=== PATIENT | male | born 1975 | race Caucasian/White ===

== ENCOUNTER 2018-10-04 02:18 | Outpatient (CLI) | payer BC, SELFPAY ==
[2018-10-04 11:41] LABS: Anion Gap 10.2 mmol/L (3-11); BUN 14 mg/dL (7-18); CO2 26.8 mmol/L (21.0-32.0); CREATININE 0.79 mg/dL (0.70-1.30); Calcium 8.9 mg/dL (8.5-10.1); Calculated LDL 185 mg/dL; Chloride 102 mmol/L (98-107); Cholesterol 289 mg/dL (50-200); Glucose 89 mg/dL (70-100); HDL Cholesterol 84 mg/dL (40-60); Potassium 4.6 mmol/L (3.5-5.1); Sodium 139 mmol/L (136-145); Triglyceride 101 mg/dL (30-150)
== END 2018-10-04 02:38 ==
PROVIDERS: PCP Family Medicine; Visit Provider Family Medicine
DX: E78.5 Hyperlipidemia, unspecified (principal); I10 Essential (primary) hypertension
CPT/HCPCS: 36415; 80048; 80061; 83721

== ENCOUNTER 2022-02-02 02:51 | Outpatient (CLI) | payer BC, SELFPAY ==
[2022-02-02 07:35] LABS: Hemoglobin A1C 5.8 % (<5.7)
[2022-02-02 07:49] LABS: Calculated LDL 159 mg/dL (<100); Cholesterol 270 mg/dL (<200); HDL Cholesterol 93 mg/dL (40-60); Triglyceride 93 mg/dL (<150)
[2022-02-02 19:47] LABS: PSA, Screening 0.7 ng/mL (<=2.5)
== END 2022-02-02 02:52 | disposition home or self-care (01) ==
LOC: LBO 02:51
PROVIDERS: PCP Nurse Practitioner Family; Visit Provider Nurse Practitioner Family
DX: Z13.220 Encounter for screening for lipoid disorders (principal); Z13.1 Encounter for screening for diabetes mellitus; Z12.5 Encounter for screening for malignant neoplasm of prostate
CPT/HCPCS: 36415; 80061; 84153; 83036

== ENCOUNTER 2022-08-23 15:26 | Outpatient (CLI) | payer BC, SELFPAY ==
--- NOTE | 2022-08-23 15:15 | RT.EKG_ITS ---
APPROVED REPORT Exam: Resting ECG Reason for Exam: chest discomfort Patient Location: O HR:84 bpm ECG Measurements Heart Rate 84 AXIS NH 179 P 51 QRSd 96 QRS 36 QT 383 T 36 QTc 453 Conclusion Sinus rhythm...normal P axis, V-rate 50- 99 Left atrial enlargement...P, P'>60mS, <-0.15mV V1 Otherwise normal ECG
== END 2022-08-23 15:27 | disposition home or self-care (01) ==
LOC: DI.CM 15:26
PROVIDERS: PCP Nurse Practitioner Family; Visit Provider Physician Assistant
DX: R07.89 Other chest pain (principal)
CPT/HCPCS: 93010

== ENCOUNTER 2022-08-23 16:18 | Emergency (ER) | payer BC, SELFPAY ==
[2022-08-23] VITALS (10 sets, daily range): BP systolic 131–144; BP diastolic 72–86; PULSE 65–89; RESP 1–20; TEMP 36.8; O2SAT 94–100
--- NOTE | 2022-08-23 16:15 | RT.EKG_ITS ---
APPROVED REPORT Exam: Resting ECG Reason for Exam: chest pain, dizzy Patient Location: E HR:83 bpm ECG Measurements Heart Rate 83 AXIS WA 185 P 44 QRSd 95 QRS 27 QT 385 T 23 QTc 452 Conclusion Sinus rhythm...normal P axis, V-rate 60- 99 Probable left atrial enlargement...P >50mS, <-0.10mV V1
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
--- NOTE | 2022-08-23 16:45 | DI.CT_ITS ---
Exam(s) CT HEAD WO EXAM: CT HEAD WO CLINICAL HISTORY: COLE, Syncope. TECHNIQUE: Imaging Protocol: Axial computed tomography images with coronal and sagittal reformatted images were created and reviewed COMPARISON: No exams were available for comparison FINDINGS: Ventricles and Extra axial spaces: Normal in size and morphology for the patient's age. Hemorrhage: None. Cerebral parenchyma: Normal. Midline shift: None. Brainstem/Cerebellum: Normal. Calvarium: Normal. Visualized Paranasal sinuses/Mastoids: Clear. Soft Tissues: Unremarkable. IMPRESSION: No acute intracranial process. RADIATION DOSE DELIVERED: 881.25mGy.cm Total DLP DATA REPOSITORY: All CT scans at this facility are submitted to the National Radiology Data Registry (NRDR) Dose Index Registry (DIR) with the [employer] (ACR). RADIATION OPTIMIZATION: All CT scans at this facility use at least one of these dose optimization te chniques: automated exposure control; mA and/or kV adjustment per patient size (includes targeted exa ms where dose is matched to clinical indication); or iterative reconstruction.
--- NOTE | 2022-08-23 16:45 | DI.CT_ITS ---
Exam(s) CT CHEST PE CTA EXAM: CT CHEST PE CTA CLINICAL HISTORY: Syncope, Chest pressure, R/O PE. TECHNIQUE: Imaging Protocol: Axial CT angiography was performed with multi-slice acquisition and mu lti-planar reconstructions as well as axial, coronal and sagittal MIP reconstructions. CONTRAST MATERIAL: Intravenous: Omnipaque 350 Contrast volume:100 ml COMPARISON: No exams were available for comparison FINDINGS: Pulmonary Arteries: No evidence of filling defect to suggest pulmonary emboli. Tracheobronchial tree: Patent where visualized. Mediastinum and Gladys: No dominant adenopathy or fluid collection. Pulmonary parenchyma: Dependent changes. No consolidation or dominant measurable mass. Pleura: No effusion or pneumothorax. Heart: The heart is not dilated. No coronary artery calcifications are seen. Aorta: Thoracic aorta non-dilated. No aneurysm. No dissection. Upper abdomen: Unremarkable. Bones: No acute fracture. Minimal anterior wedging of T12 appears chronic. Schmorl's node at this l evel. Tubes, Catheters, and Lines: None IMPRESSION: No evidence of pulmonary embolism or other acute abnormality. RADIATION DOSE DELIVERED: 491.39mGy.cm Total DLP DATA REPOSITORY: All CT scans at this facility are submitted to the National Radiology Data Registry (NRDR) Dose Index Registry (DIR) with the [employer] (ACR). RADIATION OPTIMIZATION: All CT scans at this facility use at least one of these dose optimization te chniques: automated exposure control; mA and/or kV adjustment per patient size (includes targeted exa ms where dose is matched to clinical indication); or iterative reconstruction.
[2022-08-23 16:47] LABS: Abs Immature Grans 0.01 10^3/uL (0.0-0.06); Absolute Basophil Count 0.02 10^3/uL (0.0-0.2); Absolute Eosinophil Count 0.05 10^3/uL (0.0-0.7); Absolute Lymphocyte Count 2.11 10^3/uL (1.2-3.4); Basophils % 0.4; Eosinophils % 0.9; Immature Grans % 0.2; Lymphocytes % 39.1; MCH 30.1 pg (27.0-33.0); MCHC 34.1 % (32.0-36.0); MCV 88 fL (80-95); MPV 9.9 fL (8.0-11.0); Monocytes % 11.1; Neutrophils % 48.3; Platelet Count 260 10^3/uL (130-400); RBC 4.99 10^6/uL (4.36-5.78); RDW 12.6 % (11.8-14.1); RDW-SD 40.6 fL; WBC 5.39 10^3/uL (4.4-10.8)
[2022-08-23] MEDS: Aspirin 81 MG CHEW 324 MG CH (16:55)
[2022-08-23 17:08] LABS: ALT 29 U/L (16-63); AST 19 U/L (15-37); Albumin 4.4 g/dL (3.4-5.0); Alkaline Phosphatase 65 U/L (46-116); BUN 15 mg/dL (7-18); Bilirubin, Total 0.3 mg/dL (0.2-1.0); CREATININE 0.8 mg/dL (0.70-1.30); Calcium 8.8 mg/dL (8.5-10.1); Chloride 103 mmol/L (98-107); Estimated GFR 111.22 (mL/min/1.73m2); Glucose 116 mg/dL (74-106); Potassium 3.3 mmol/L (3.5-5.1); Sodium 141 mmol/L (136-145); Total Protein 7.7 g/dL (6.4-8.2); Troponin I < 50 ng/L (<or=60)
[2022-08-23 17:19] LABS: D-Dimer 155 ng/mlFEU (<500)
[2022-08-23] MEDS: Normal Saline Flush 10 ML SYR IVP (17:27)
[2022-08-23] MEDS: Omnipaque 350 MG/ML 100 ML BTL IJ (17:28)
[2022-08-23] MEDS: Normal Saline - Diluent 50 ML VIAL IJ (17:28)
[2022-08-23] MEDS: Potassium Chloride 20 MEQ TABCR 40 MEQ PO (17:40)
--- NOTE | 2022-08-23 18:08 | DI.VRAD_ITS ---
PROCEDURE INFORMATION: Exam: CTA Chest With Contrast Exam date and time: 08/23/2022 5:37 PM Age: 47 years old Clinical indication: Other: Syncope, chest pressure, R/O pe TECHNIQUE: Imaging protocol: Computed tomographic angiography of the chest with contrast. Exam focused on the arteries. 3D rendering (Not supervised by radiologist): MIP and/or 3D reconstructed images were created by the technologist. Contrast material: OMNIPAQUE 350; Contrast volume: 100 ml; Contrast route: INTRAVENOUS (IV); COMPARISON: No relevant prior studies available. FINDINGS: Pulmonary arteries: Normal. No pulmonary emboli. Aorta: Unremarkable. No aortic aneurysm. No aortic dissection. Lungs: Unremarkable. No consolidation. No masses. Pleural spaces: Unremarkable. No pneumothorax. No pleural effusion. Heart: Unremarkable. No cardiomegaly. No pericardial effusion. Lymph nodes: Unremarkable. No enlarged lymph nodes. Bones/joints: Unremarkable. No acute fracture. Soft tissues: Unremarkable. IMPRESSION: No acute findings. Dictated and Authenticated by: Sin Pearson MD. Ordering:TINO Munroe MD
--- NOTE | 2022-08-23 18:20 | DI.VRAD_ITS ---
PROCEDURE INFORMATION: Exam: CT Head Without Contrast Exam date and time: 08/23/2022 5:34 PM Age: 47 years old Clinical indication: Syncope and collapse and other: COLE, syncope TECHNIQUE: Imaging protocol: Computed tomography of the head without contrast. COMPARISON: No relevant prior studies available. FINDINGS: Brain: There is no acute intracranial hemorrhage, mass effect or midline shift. There is no large acute territorial cerebral infarct. Cerebral ventricles: No ventriculomegaly. Paranasal sinuses: Visualized sinuses are unremarkable. No fluid levels. Mastoid air cells: Visualized mastoid air cells are well aerated. Bones/joints: Unremarkable. No acute fracture. Soft tissues: Unremarkable. IMPRESSION: No acute intracranial hemorrhage, mass effect or midline shift. Dictated and Authenticated by: Whitney Zavala MD. Ordering:TINO Munroe MD
== END 2022-08-23 18:53 | disposition home or self-care (01) ==
PROVIDERS: Emergency Provider Registered Nurse Emergency; PCP Nurse Practitioner Family
DX: R55 Syncope and collapse (principal); E86.0 Dehydration; R07.9 Chest pain, unspecified
CPT/HCPCS: 71275; 80053; 93005; 99285; 70450; 83735; 84484; 85025; 85379; 93010; 99284; J3490

== ENCOUNTER 2023-07-02 09:13 | Day surgery (SDC) | payer BC, SELFPAY ==
--- NOTE | 2023-07-01 19:00 | W.PM.DSUDISC ---
Date of service: 07/02/23 Time of Service: 10:37 Discharge Plan Disposition Patient Disposition: Home Condition: Good Discharge Details Reason For Visit: screening colonoscopy Attending Provider: Mark Gardner Primary Care Provider: Rasheed Quispe Home Meds and New Rx's Prescriptions: Continued sertraline 50 mg tablet 50 mg PO DAILY Qty: 90 4RF Rx Instructions: please dispense up to 9 months, patient is leaving for [place] (or ? mailing it to him) Discontinued bisacodyl [Dulcolax (bisacodyl)] 5 mg tablet,delayed release (DR/EC) 5 mg PO ONCE Qty: 4 0RF polyethylene glycol 3350 17 gram/dose powder 17 g PO DAILY Qty: 238 0RF Discharge Instructions Instructions: Colorectal Polyps (GEN) Additional Instructions: Neno, we were able to complete your colonoscopy today without any difficulty. The quality of her prep was excellent. I did find 2 polyps. 1 was small, the other was medium in size. I removed both of these without any issues. They will both be sent off for testing, and once I know the nature of these polyps, my office will be in touch with recommendations for the timing of your next colonoscopy. If you need anything at all or have any questions in the meantime, please do not hesitate to call or ask at any point 1. If tolerated, consume a soft, low fiber diet for 1-2 days. 2[address] Do not drive, drink alcohol, operate machinery, make critical decisions, or do activities that require coordination or balance for 24 hours. 3. Because air was put into your colon during the procedure, expelling air from your rectum (passing gas or farting) is normal. 4. You may not have a bowel movement for 1-3 days because of the colonoscopy prep. This is normal. 5. Go directly to the emergency room if you notice any of the following: Develop chills (warm to touch), or if you have a thermometer and your temperature is above 101 Difficulty breathing or difficultly swallowing Persistent vomiting Severe abdominal pain, other than gas cramps Severe chest pain Black, tarry stools Any bleeding ? exceeding one tablespoon 6. Call your physician if the site where your intravenous was started becomes red, swollen, painful, and warm to touch. 7. Your physician has reviewed your pre-procedure medications. Please continue to take those medications as previously ordered. You will be given specific information/education regarding any changes to your medications before leaving. Activity:: Activity as Tolerated Diet:: As Tolerated Discharge Orders Discharge Orders: Discharge Order (Routine); Ordered 07/01/23 Ordered By: Mark Gardner DS: Diagnosis Discharge Diagnosis (1) Encounter for screening colonoscopy: Status: Acute Asessment and Plan: Follow-up on polypectomy results
--- NOTE | 2023-07-01 19:01 | W.COLOREPORT ---
Date of service: 07/02/23 Time of Service: 10:39 Colonoscopy Report Date of procedure: 07/02/23 Pre-op diagnosis general: screening colonoscopy Post-op diagnosis procedure note: other (Colon polyps) Procedure: colonoscopy with polypectomy Surgeon: Mark Gardner Anesthesia Type: General:No Airway Estimated blood loss (mL): 5 Pathology: other (0.5 cm pedunculated polyp at 60 cm, 0.25 cm flat polyp in the rectum) Complications: None Disposition: same day Indications: Neno is a 48 yearold man who needs a screening colonoscopy Prep: Miralax/Dulcolax Procedure Start Time: 09:58 Procedure End Time: 10:27 Retraction Time: 10 Findings: 0.5 cm pedunculated polyp at 60 cm, 0.25 cm flat polyp in the rectum Procedure Description: After the induction of monitored anesthetic care, and with the patient in left lateral decubitus position, I began by performing an external anorectal exam.? Perineum and skin were normal, as was the anal verge.? There was no evidence of external hemorrhoids.? Next, I performed a digital rectal exam.? I did not appreciate any abnormal findings.? Next, I advanced a colonoscope into the rectal vault.? I performed retroflexion.? This was normal.? Using insufflation, I then advanced the colonoscope beyond the rectal folds and into the sigmoid colon before advancing towards the cecum.? The scope was noted to be in the cecum by identification of the ileocecal valve and appendiceal orifice.? I then began withdrawing the colonoscope using repeated irrigation as necessary for full evaluation of the colonic mucosa. Around 60 cm from the anal verge I identified a 0.5 cm polyp. ?It appeared pedunculated in character. ?I was able to remove this with a cold snare polypectomy. ?I examined the site, and there was minimal bleeding. ?Once this was completed, I continued to withdraw the scope and examine the remainder of the colonic mucosa.?Once the scope was withdrawn to the level of the rectum, great care was taken to examine portions of the rectal folds. In the upper portion of the rectal vault was another polyp. This was about 0.25 cm and flat. This was removed with cold forcep polypectomy without any problems.? Finally, the scope was withdrawn and the patient was brought to the same-day surgery recovery unit as the anesthetic wore off. ?The findings and instructions were shared with the patient prior to discharge. [place] Bowel Prep Orlando Bowel Prep Right Colon: 3 Left Colon: 3 Transverse Colon: 3 Total Score: 9
[2023-07-02 09:24] VITALS: BP 135/80; PULSE 61; RESP 16; TEMP 36.5; O2SAT 98
[2023-07-02] MEDS: Lactated Ringers 1,000 ML 80 ML IV (09:29)
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
[2023-07-02 09:44] VITALS: BMI 29.7
--- NOTE | 2023-07-02 10:23 | BOWEL_PTH ---
PATIENT: Neno Grant LOC: [facility] U#:[id number] AGE/SX: 48/M ROOM: RE07/02/[address]: Mark Gardner MD : 1975 BED: DIS: 07/02/2023 SPEC #: [id number] RECD: 07/02/23 12:57 STATUS: NOLVIA REQ #: [id number] MITRA: 07/02/23 10:[address]: Mark Gardner DEPT: Surgical Specimen RECD BY: Sayda Tsang ENTERED: 07/02/23 12:58 SP TYPE: Bowel OTHR DR: Rasheed Donato DNP Tissues: 1 - BIOPSY BOWEL 2 - BIOPSY BOWEL Procedures: GROSS AND MICRO LEVEL 4 Comments: [id number]
[2023-07-02 10:35] VITALS: BP 106/72; PULSE 69; RESP 16; O2SAT 98
[2023-07-02 10:54] VITALS: BP 108/72; PULSE 56; RESP 16; TEMP 36.6; O2SAT 98
--- NOTE | 2023-07-02 10:55 | W.ANESPOSTOP ---
Postoperative Evaluation Date, Time and Location Date Performed: 07/02/23 Time Performed: 10:48 Patient Location: Day Surgery Unit Vital Signs Most Recent Imported Vital Signs: Most Recent Vital Signs Temp Pulse Resp BP Pulse Ox 36.6 C 56 L 16 108/72 98 07/02/23 10:54 07/02/23 10:54 07/02/23 10:54 07/02/23 10:54 07/02/23 10:54 Pain Score Most Recent Pain Score: Most Recent Pain Score Pain Level 0 07/02/23 10:54 Assessment Mental Status: Awake (Alert & Oriented to Patient Baseline) Airway and Respiratory Function: Patent airway with normal (patient baseline) respiratory exam Cardiovascular Function: Hemodynamically Stable Hydration Status: Adequately Hydrated Nausea & Vomiting: No Nausea or Vomiting Pain: Pt. Denies Any Pain Peripheral Nerve Block: Patient did not receive a nerve block
== END 2023-07-02 11:15 | disposition home or self-care (01) ==
LOC: SUR 09:13
PROVIDERS: PCP Nurse Practitioner Family; Visit Provider Surgery
PROC: 0DJD8ZZ Inspection of Lower Intestinal Tract, Via Natural or Artificial Opening Endoscopic (ICD-10-PCS; CPT 45378; principal; 2023-07-02 11:15)
DX: Z12.11 Encounter for screening for malignant neoplasm of colon (principal); D12.4 Benign neoplasm of descending colon; K62.1 Rectal polyp
CPT/HCPCS: 45385; 45380; 88305; J2001; J2704

== ENCOUNTER 2024-08-01 09:14 | Outpatient (CLI) | payer OTHER, SELFPAY ==
[2024-08-01 13:20] LABS: Hemoglobin A1C 5.7 % (<5.7)
[2024-08-01 18:55] LABS: PSA, Screening 0.9 ng/mL (<=2.5)
[2024-08-01 19:37] LABS: HIV-1/2 Ag & Ab Screen Negative (Negative)
[2024-08-01 19:39] LABS: Hepatitis C Ab w Rflx HCV PCR Negative (Negative)
[2024-08-01 19:41] LABS: HBs Antibody, Quant 668.1 mIU/mL (See Note); Hep B Surface Ab Positive (See Note); Hepatitis B Core Antibody Negative (Negative); Hepatitis B Surface Antigen Negative (Negative)
== END 2024-08-01 09:15 | disposition home or self-care (01) ==
PROVIDERS: PCP Nurse Practitioner Family; Visit Provider Nurse Practitioner Family
DX: Z11.59 Encounter for screening for other viral diseases (principal); R73.03 Prediabetes; Z11.4 Encounter for screening for human immunodeficiency virus [HIV]; Z80.42 Family history of malignant neoplasm of prostate; Z12.5 Encounter for screening for malignant neoplasm of prostate
CPT/HCPCS: 36415; 84153; 86704; 86706; 86803; 87340; 87389; 83036

== ENCOUNTER 2024-08-05 01:23 | Outpatient (CLI) | payer OTHER, SELFPAY ==
--- NOTE | 2024-08-05 07:30 | DI.RAD_ITS ---
Exam(s) XR CERVICAL SPINE COMP 4-5V EXAM: XR CERVICAL SPINE COMP 4-5V CLINICAL HISTORY: worsening, turning to the left,decreased range of motion,r29.898. TECHNIQUE: 2D digital imaging was performed. Five images were obtained. AP, odontoid, lateral and bilateral oblique images were obtained. COMPARISON: No exams were available for comparison FINDINGS: The odontoid is intact. The lateral masses are well aligned. There is normal alignment of the cervical spine. At C6-C7, there is mild joint space narrowing and small osteophytes present. No acute fracture or subluxation is present. No significant neural foraminal stenosis is present. The cervical thoracic junction is well maintained. The prevertebral soft tissues are unremarkable. Lung apices are clear. IMPRESSION: Mild degenerative changes seen at C6-C7. DATA REPOSITORY: RADIATION DOSE DELIVERED:
== END 2024-08-05 01:43 ==
LOC: DI 01:24
PROVIDERS: PCP Nurse Practitioner Family; Visit Provider Nurse Practitioner Family
DX: R29.898 Other symptoms and signs involving the musculoskeletal system (principal)
CPT/HCPCS: 72050